=== PATIENT | female | born 1995 | race Hispanic/Latino ===

== ENCOUNTER 2017-06-07 21:11 | Emergency (ER) | payer MEDICAID ==
[2017-06-07 21:37] LABS: BILIRUBIN,URINE Negative (NEGATIVE); COLOR,URINE Yellow (YELLOW); GLUCOSE, URINE (UA) Negative (NEGATIVE); KETONES,URINE Negative (NEGATIVE); LEUKOCYTE ESTERASE ,URINE Large (NEGATIVE); NITRATE,URINE Positive (NEGATIVE); OCCULT BLOOD,URINE Negative (NEGATIVE); PROTEIN,URINE Negative (NEGATIVE)
[2017-06-07 21:42] LABS: APPEARANCE,URINE SLIGHTLY CLOUDY (CLEAR)
[2017-06-07 22:21] LABS: RBC,URINE 0-1 /HPF (0-1)
[2017-06-07 22:22] LABS: BACTERIA,URINE Moderate /HPF (None Seen); MUCUS,URINE Rare LPF (None Seen); SQUAMOUS EPITHELIAL CELL,UR Few /LPF (0-2)
== END 2017-06-07 23:00 | disposition home or self-care (01) ==
LOC: EDH 21:11
DX: N39.0 Urinary tract infection, site not specified (principal)
CPT/HCPCS: 81001; 81025

== ENCOUNTER 2017-07-15 13:45 | Emergency (ER) | payer MEDICAID ==
[2017-07-15 14:19] LABS: APPEARANCE,URINE Cloudy (CLEAR); BILIRUBIN,URINE Negative (NEGATIVE); COLOR,URINE Yellow (YELLOW); GLUCOSE, URINE (UA) Negative (NEGATIVE); KETONES,URINE Negative (NEGATIVE); LEUKOCYTE ESTERASE ,URINE Moderate (NEGATIVE); NITRATE,URINE Positive (NEGATIVE); OCCULT BLOOD,URINE Moderate (NEGATIVE); PH,URINE 6.5 (5.0-8.0); PROTEIN,URINE Negative (NEGATIVE); UROBILINOGEN,URINE 0.2 mg/dL (0.2-1.0)
[2017-07-15 14:25] LABS: HCG,QUAL RESULT NEGATIVE (NEGATIVE)
[2017-07-15] MEDS ORDERED: CEFTRIAXONE SODIUM 1 GM ONE (14:34)
[2017-07-15] MEDS ORDERED: LIDOCAINE HCL-MPF 1% 2ML VIAL ONE (14:34)
[2017-07-15 14:35] LABS: BACTERIA,URINE Moderate /HPF (None Seen); MUCUS,URINE Many LPF (None Seen)
[2017-07-15 14:36] LABS: RBC,URINE None Seen /HPF (0-1)
== END 2017-07-15 15:01 | disposition home or self-care (01) ==
LOC: EDH 13:45
DX: N30.00 Acute cystitis without hematuria (principal)
CPT/HCPCS: 81001; 81025; 87486; 87797; 96374; 99284; J0696; J3490